=== PATIENT | female | born 1955 | race Caucasian/White ===

== ENCOUNTER → 2023-10-03 13:56 | Outpatient (REF) | payer OTHER, SELFPAY | LOC: DHCBC HW 13:56 | PROVIDERS: ATTENDING PHYSICIAN Internal Medicine Cardiovascular Disease; FAMILY PHYSICIAN Internal Medicine | DX: I48.0 Paroxysmal atrial fibrillation (principal) | CPT/HCPCS: 93306 ==

== ENCOUNTER → 2024-04-10 09:03 | Outpatient (REF) | payer OTHER, SELFPAY ==
[2024-04-10 09:56] LABS: % Basophils 1.4 % (0-2); % Eosinophils 1.4 % (0-6); % Immature Granulocytes 0.2 % (0-0.5); % Lymphocytes 29.6 % (20.5-51.1); % Monocytes 8.7 % (1.7-9.3); % Neutrophils 58.7 % (42.2-75.2); Absolute Basophils 0.1 10^3/uL (0-0.2); Absolute Eosinophils 0.1 10^3/uL (0-0.7); Absolute Lymphocytes 1.5 10^3/uL (1.2-3.4); Absolute Monocytes 0.4 10^3/uL (0.1-0.6); Hemoglobin 13.5 g/dL (12.0-16.0); Mean Corp Hgb Conc. 32.9 g/dL (33.0-37.0); Mean Corpuscular Hgb 30.6 pg (27.0-31.0); Mean Platelet Volume 9.8 fL (7.4-10.4); Nucleated Red Blood Cells % 0 %; Platelet Count 303 10^3/uL (130-400); Red Blood Cell Count 4.41 10^6/uL (4.20-5.40); Red Cell Dist. Width 12.9 % (11.5-14.5)
[2024-04-10 10:52] LABS: ALT (SGPT) 19 U/L (0-35); AST (SGOT) 31 U/L (14-36); Albumin 4.5 g/dl (3.5-5.0); Alkaline Phosphatase 86 U/L (38-126); Blood Urea Nitrogen 15 mg/dl (7-17); Calcium 10.2 mg/dl (8.4-10.2); Carbon Dioxide 26 mmol/L (22-30); Chloride 105 mmol/L (98-107); Glucose 95 mg/dl (70-99); Iron 124 ug/dl (37-170); Potassium 4.6 mmol/L (3.5-5.1); Sodium 142 mmol/L (135-145); Total Bilirubin 0.8 mg/dl (0.2-1.3); Total Protein 7.2 g/dl (6.3-8.2); eGFR > 60.00
[2024-04-10 11:21] LABS: Cortisol, Random 14.9 ug/dl; TSH Reflex To Free T4 1.97 uIU/ml (0.47-4.68)
[2024-04-10 11:40] LABS: Vitamin B12 923 pg/ml (239-931)
== END ==
LOC: REG 09:03
PROVIDERS: ATTENDING PHYSICIAN Internal Medicine
DX: R53.83 Other fatigue (principal); L65.9 Nonscarring hair loss, unspecified
CPT/HCPCS: 36415; 80053; 82533; 82607; 83540; 84443; 85025

== ENCOUNTER → 2024-09-11 09:00 | Outpatient (REF) | payer MEDICARE, SELFPAY ==
[2024-09-11 10:30] LABS: % Basophils 1.8 % (0-2); % Eosinophils 1.6 % (0-6); % Immature Granulocytes 0.2 % (0-0.5); % Lymphocytes 31.5 % (20.5-51.1); % Monocytes 8.5 % (1.7-9.3); % Neutrophils 56.4 % (42.2-75.2); Absolute Basophils 0.1 10^3/uL (0-0.2); Absolute Eosinophils 0.1 10^3/uL (0-0.7); Absolute Lymphocytes 1.4 10^3/uL (1.2-3.4); Absolute Monocytes 0.4 10^3/uL (0.1-0.6); Absolute Neutrophils 2.5 10^3/uL (1.4-6.5); Hematocrit 38.3 % (37.0-47.0); Hemoglobin 12.8 g/dL (12.0-16.0); Mean Corp Hgb Conc. 33.4 g/dL (33.0-37.0); Mean Corpuscular Hgb 30.7 pg (27.0-31.0); Mean Corpuscular Volume 91.8 fL (81.0-99.0); Mean Platelet Volume 10.4 fL (7.4-10.4); Nucleated Red Blood Cells % 0 %; Platelet Count 288 10^3/uL (130-400); Red Blood Cell Count 4.17 10^6/uL (4.20-5.40); Red Cell Dist. Width 12.8 % (11.5-14.5); White Blood Cell Count 4.4 10^3/uL (4.8-10.8)
[2024-09-11 10:56] LABS: ALT (SGPT) 15 U/L (0-35); AST (SGOT) 25 U/L (14-36); Albumin 4.6 g/dl (3.5-5.0); Alkaline Phosphatase 82 U/L (38-126); Blood Urea Nitrogen 15 mg/dl (7-17); Carbon Dioxide 27 mmol/L (22-30); Chloride 104 mmol/L (98-107); Glucose 95 mg/dl (70-99); HDL Cholesterol 69 mg/dl; LDL Cholesterol, Calculated 150 mg/dl; Potassium 4.9 mmol/L (3.5-5.1); Sodium 140 mmol/L (135-145); Total Cholesterol 244 mg/dl (50-199); Total Protein 7.2 g/dl (6.3-8.2); Triglyceride 125 mg/dl (10-149); Very Low Density Lipoprotein 25 mg/dl (0-30); eGFR > 60.00
[2024-09-11 11:26] LABS: TSH Reflex To Free T4 2.66 uIU/ml (0.47-4.68)
[2024-09-11 11:41] LABS: Glycohemoglobin (HgbA1c) 5.1 % (4.0-5.6)
== END ==
LOC: REG 09:00
PROVIDERS: ATTENDING PHYSICIAN Internal Medicine
DX: E78.2 Mixed hyperlipidemia (principal); R73.9 Hyperglycemia, unspecified
CPT/HCPCS: 36415; 80053; 80061; 83036; 84443; 85025

== ENCOUNTER → 2024-10-28 14:45 | Outpatient (REF) | payer MEDICARE, SELFPAY | LOC: HWWDC 14:45 | PROVIDERS: ATTENDING PHYSICIAN Internal Medicine | DX: Z12.31 Encounter for screening mammogram for malignant neoplasm of breast (principal) | CPT/HCPCS: 77063; 77067 ==

== ENCOUNTER → 2025-02-19 12:14 | Outpatient (REF) | payer MEDICARE, SELFPAY ==
[2025-02-19 15:56] LABS: Hematocrit 39.9 % (37.0-47.0); Hemoglobin 13.3 g/dL (12.0-16.0); Mean Corp Hgb Conc. 33.3 g/dL (33.0-37.0); Mean Corpuscular Volume 92.6 fL (81.0-99.0); Nucleated Red Blood Cells % 0 %; Platelet Count 312 10^3/uL (130-400); Red Cell Dist. Width 12.9 % (11.5-14.5)
== END ==
LOC: HWLAB 12:14
PROVIDERS: ATTENDING PHYSICIAN Physician Assistant Medical; PRIMARYCARE PHYSICIAN Internal Medicine
DX: Z51.81 Encounter for therapeutic drug level monitoring (principal)
CPT/HCPCS: 36415; 85025

== ENCOUNTER → 2025-02-20 09:00 | Outpatient (REF) | payer MEDICARE, SELFPAY ==
[2025-02-20 11:27] LABS: Blood Urea Nitrogen 15 mg/dl (7-17); Calcium 10.1 mg/dl (8.4-10.2); Carbon Dioxide 25 mmol/L (22-30); Chloride 108 mmol/L (98-107); Glucose 91 mg/dl (70-99); Potassium 4.5 mmol/L (3.5-5.1); Sodium 140 mmol/L (135-145); eGFR > 60.00
== END ==
LOC: REG 09:00
PROVIDERS: ATTENDING PHYSICIAN Physician Assistant Medical
DX: Z51.81 Encounter for therapeutic drug level monitoring (principal)
CPT/HCPCS: 36415; 80048

== ENCOUNTER → 2025-04-11 07:38 | Outpatient (REF) | payer MEDICARE, SELFPAY ==
[2025-04-11 09:55] LABS: Hematocrit 40.2 % (37.0-47.0); Hemoglobin 13.6 g/dL (12.0-16.0); Mean Corp Hgb Conc. 33.8 g/dL (33.0-37.0); Mean Corpuscular Volume 89.9 fL (81.0-99.0); Nucleated Red Blood Cells % 0 %; Platelet Count 294 10^3/uL (130-400); Red Cell Dist. Width 12.3 % (11.5-14.5)
[2025-04-11 10:27] LABS: ALT (SGPT) 12 U/L (0-35); AST (SGOT) 20 U/L (14-36); Albumin 4.4 g/dl (3.5-5.0); Alkaline Phosphatase 74 U/L (38-126); Blood Urea Nitrogen 18 mg/dl (7-17); Calcium 10.2 mg/dl (8.4-10.2); Carbon Dioxide 26 mmol/L (22-30); Chloride 108 mmol/L (98-107); Glucose 95 mg/dl (70-99); Lipase 242 U/L (23-300); Potassium 4.1 mmol/L (3.5-5.1); Sodium 140 mmol/L (135-145); Total Protein 7.2 g/dl (6.3-8.2); eGFR > 60.00
[2025-04-11 10:46] LABS: TSH 2.56 uIU/ml (0.47-4.68)
[2025-04-11 10:56] LABS: Amylase 70 U/L (30-110)
== END ==
LOC: HWLAB 07:38
PROVIDERS: ATTENDING PHYSICIAN Orthopaedic Surgery; FAMILY PHYSICIAN Internal Medicine
DX: K52.9 Noninfective gastroenteritis and colitis, unspecified (principal); Z01.818 Encounter for other preprocedural examination
CPT/HCPCS: 36415; 80053; 82150; 82784; 83516; 83690; 84443; 85025; 86231; 93005